=== PATIENT | female | born 1995 | race Caucasian/White ===

== ENCOUNTER 2018-02-17 20:40 | Emergency (ER) | payer OTHER ==
--- NOTE | 2018-02-17 21:57 | RADIOLOGY REPORT (SQ) ---
EXAM DESCRIPTION: ELBOW RIGHT OVER 2 VIEWS COMPLETED DATE/TIME: 02/17/2018 9:05 pm REASON FOR STUDY: fall and pain to right elbow. COMPARISON: None. NUMBER OF VIEWS: Four views. TECHNIQUE: AP, lateral, and both oblique radiographic images acquired of the right elbow. LIMITATIONS: None. FINDINGS: MINERALIZATION: Normal. BONES: No acute fracture or dislocation. No worrisome bone lesions. JOINT: There is an effusion in the joint. SOFT TISSUES: No soft tissue swelling. No foreign body. OTHER: No other significant finding. IMPRESSION: No fracture is appreciated, but there is a joint effusion. Consider conservative measur es and repeat imaging as clinically indicated. TECHNICAL DOCUMENTATION: JOB ID: [id number] [employer]- All Rights Reserved Reading location - IP/workstation name: [email or web address]
[2018-02-17] MEDS ORDERED: IBUPROFEN 800 MG TABLET PO ONE (22:58)
--- NOTE | 2018-02-17 22:58 | ER Document Report ---
ED Medical Screen (RME) - General Chief Complaint: Arm Injury Stated Complaint: ARM INJURY Time Seen by Provider: 02/17/18 22:55 Mode of Arrival: Ambulatory Information source: Patient Notes: 22-year-old female presents to ED for right arm pain. She states she fell at work landing on her right arm about 7:40 PM today. She stated her last menstrual period she is on it right now. She is not allergic to any medicines. She is complaining of pain in her left arm and elbow. I have greeted and performed a rapid initial assessment of this patient. A comprehensive ED assessment and evaluation of the patient, analysis of test results and completion of medical decision making process will be conducted by an additional ED providers. TRAVEL OUTSIDE OF THE [place] IN LAST 30 DAYS: No Physical Exam - Vital signs Vitals: Temp Pulse Resp BP Pulse Ox 97.9 F 81 20 133/75 H 99 02/17/18 20:45 02/17/18 20:45 02/17/18 20:45 02/17/18 20:45 02/17/18 20:45 Course - Vital Signs Vital signs: Temp Pulse Resp BP Pulse Ox 97.9 F 81 20 133/75 H 99 02/17/18 20:45 02/17/18 20:45 02/17/18 20:45 02/17/18 20:45 02/17/18 20:45
[2018-02-18] MEDS ORDERED: HYDROCODONE/ACETAMINOPHEN 5-325 MG TABLET PO ONE (00:36)
[2018-02-18] MEDS ORDERED: HYDROCODONE/ACETAMINOPHEN 5-325 MG (6 TAB/ER DISP) PO PRN (00:36)
--- NOTE | 2018-02-18 00:56 | ER Document Report ---
ED General - General Chief Complaint: Arm Injury Stated Complaint: ARM INJURY Time Seen by Provider: 02/17/18 22:55 Mode of Arrival: Ambulatory TRAVEL OUTSIDE OF THE [place] IN LAST 30 DAYS: No - HPI Patient complains to provider of: Right elbow pain Notes: Patient coming in for right elbow pain. Patient states she was at her place of employment when she slipped and fell hitting her right elbow. Patient states continues to have pain of the right elbow. Denies any pain at the wrists denies any other injuries. Patient resting comfortably with her arm in a makeshift sling upon my evaluation. - Related Data Allergies/Adverse Reactions: No Known Allergies Allergy (Unverified 02/17/18 22:56) Past Medical History - General Information source: Patient - Social History Smoking Status: Unknown if Ever Smoked Family History: Reviewed & Not Pertinent Patient has suicidal ideation: No Patient has homicidal ideation: No Renal/ Medical History: Denies: Hx Peritoneal Dialysis Review of Systems - Review of Systems Constitutional: No symptoms reported EENT: No symptoms reported Cardiovascular: No symptoms reported Respiratory: No symptoms reported Gastrointestinal: No symptoms reported Genitourinary: No symptoms reported Female Genitourinary: No symptoms reported Musculoskeletal: Other - Right elbow pain Skin: No symptoms reported Hematologic/Lymphatic: No symptoms reported Neurological/Psychological: No symptoms reported -: Yes All other systems reviewed and negative Physical Exam - Vital signs Vitals: Temp Pulse Resp BP Pulse Ox 97.9 F 81 20 133/75 H 99 02/17/18 20:45 02/17/18 20:45 02/17/18 20:45 02/17/18 20:45 02/17/18 20:45 Interpretation: Normal - General General appearance: Appears well, Alert - HEENT Head: Normocephalic, Atraumatic Eyes: Normal Pupils: PERRL - Respiratory Respiratory status: No respiratory distress Chest status: Nontender Breath sounds: Normal Chest palpation: Normal - Cardiovascular Rhythm: Regular Heart sounds: Normal auscultation Murmur: No - Abdominal Inspection: Normal Distension: No distension Bowel sounds: Normal Tenderness: Nontender Organomegaly: No organomegaly - Back Back: Normal, Nontender - Extremities General upper extremity: Normal inspection, Tender - Exam on the right side tenderness palpation of the lateral and medial epicondyle of the elbow. Tenderness at the proximal radial head also tenderness at the distal humerus. No tenderness to palpation of the wrist Refill intact pulses intact distally Left side unaffected, Normal color, Normal ROM, Normal temperature General lower extremity: Normal inspection, Nontender, Normal color, Normal ROM , Normal temperature, Normal weight bearing. No: Lui's sign - Neurological Neuro grossly intact: Yes Cognition: Normal Orientation: AAOx4 [place] Coma Scale Eye Opening: Spontaneous [place] Coma Scale Verbal: Oriented [place] Coma Scale Motor: Obeys Commands [place] Coma Scale Total: 15 Speech: Normal Motor strength normal: LUE, RUE, LLE, RLE Sensory: Normal - Psychological Associated symptoms: Normal affect, Normal mood - Skin Skin Temperature: Warm Skin Moisture: Dry Skin Color: Normal Course - Re-evaluation Re-evalutation: 02/18/18 04:27 Patient coming in for evaluation of right elbow pain. There is a posterior fat pad and what looks like to be an anterior cell sign on the x-ray with no signs of obvious fracture. Because of the exquisite pain will place the patient in a posterior OCL and sling and have patient follow-up for repeat x-rays in 7 days with orthopedics. Patient states understanding of this plan. - Vital Signs Vital signs: Temp Pulse Resp BP Pulse Ox 98.2 F 82 12 122/76 100 02/18/18 01:11 02/18/18 01:11 02/18/18 01:11 02/18/18 01:11 02/18/18 01:11 Discharge - Discharge Clinical Impression: Injury of right elbow Qualifiers: Encounter type: initial encounter Qualified Code(s): S59.901A - Unspecified injury of right elbow, initial encounter Condition: Good Disposition: HOME, SELF-CARE Instructions: Arthralgia ([facility]), Oral Narcotic Medication ([facility]) Additional Instructions: Your x-ray tonight does not show signs of a obvious fracture however there are signs she may have an occult fracture or a small fracture that we just cannot see on the x-ray. When this occurs we will splint the joint and have a follow- up in 7 days for another x-ray. He may follow-up with orthopedic doctors provided. Return to ER if symptoms worsen take pain medication as prescribed. You may also take Tylenol and Motrin for pain control. Prescriptions: Hydrocodone/Acetaminophen [Hydrocodon-Acetaminophen 5-325] 1 each PO Q6 PRN #21 tablet PRN Reason: Forms: Return to Work Referrals: MIREYA SINGH DO [ACTIVE STAFF] - Follow up in 1 week (Call tomorrow for appointment)
[2018-02-18 01:14] VITALS: BP 122/76
== END 2018-02-18 01:51 | disposition home or self-care (01) ==
LOC: ER 20:40
DX: S59.901A Unspecified injury of right elbow, initial encounter (principal); M25.521 Pain in right elbow; W01.10XA Fall on same level from slipping, tripping and stumbling with subsequent striking against unspecified object, initial encounter
CPT/HCPCS: 99283